=== PATIENT | male | born 1990 | race Two or more races ===

== ENCOUNTER 2021-01-12 06:08 | Outpatient (CLI) | payer OTHER ==
[~2021-01-12 06:08] MED LIST: CONEX TABLET1 EACH PO; OSEL75CA PO
== END 2021-01-12 10:50 | disposition home or self-care (01) ==
LOC: LAB 06:08
DX: Z20.818 Contact with and (suspected) exposure to other bacterial communicable diseases (principal); Z20.828 Contact with and (suspected) exposure to other viral communicable diseases

== ENCOUNTER 2023-01-15 23:38 | Emergency (ER) | payer OTHER ==
[~2023-01-15] VITALS: Ht 190.5 cm; Wt 127.0 kg
[2023-01-16 01:44] LABS: HEMATOCRIT 47.2 % (39.0-48.0); HEMOGLOBIN 16.2 g/dL (13-16.00); MEAN CELL VOLUME 85.1 fL (80.0-100.00); MEAN CORPUSCULAR HEMOGLOBIN 29.3 pg (27.00-32.0); MEAN CORPUSCULAR HGB CONC 34.4 g/dl (32.0-36.0); PLATELET COUNT 258 K/uL (150-450); RED BLOOD COUNT 5.55 M/uL (4.00-6.00); RED CELL DISTRIBUTION WIDTH 13.9 % (11.5-14.5)
[2023-01-16 02:07] LABS: CALCIUM 9.8 mg/dL (8.5-10.1); CREATININE SERUM 1.38 mg/dL (0.70-1.30); GFR 60.1; POTASSIUM 3.89 mEq/L (3.5-5.1)
[2023-01-16 06:52] LABS: PH,URINE 5.5 (5.0-8.0); URINE APPEARANCE Clear; URINE BILIRRUBIN Negative (NEGATIVE); URINE BLOOD Negative; URINE COLOR Yellow; URINE EPITHELIAL CELLS 4.4 uL (0.0-38.8); URINE GLUCOSE Negative (NEGATIVE); URINE LEUKOCYTE Negative; URINE NITRATE Negative; URINE PROTEIN Trace (NEGATIVE); URINE UROBILINOGEN 0.2 E.U./dl; URINE WBC 4.4 uL (0.0-23.2)
[2023-01-16 06:58] LABS: URINE BACTERIA 3.7 uL (0.0-1933)
[2023-01-16] MEDS ORDERED: LEVSIN/SL0.125 MG SL (07:11)
[2023-01-16] MEDS ORDERED: PEPCID40 MG PO (07:11)
[2023-01-16] MEDS ORDERED: ONDANSETRON ODT4 MG PO (07:11)
[2023-01-16] MEDS ORDERED: INTESTINEX680 M1 PO (07:11)
== END 2023-01-16 07:40 ==
LOC: ER 23:39
PROVIDERS: General Practice
DX: K52.89 Other specified noninfective gastroenteritis and colitis (principal)